=== PATIENT | female | born 1995 | race African-American/Black ===

== ENCOUNTER 2022-03-23 11:25 | Emergency (ER) | payer BC, SELFPAY ==
--- NOTE | ~2022-03-23 | XR_ITS ---
EXAMINATION: XR chest 2V 03/23/2022 11:47 INDICATION: Fever and cough PROCEDURE: 2 view chest COMPARISON: No prior studies for comparison. FINDINGS: The lungs are clear. The cardiomediastinal silhouette is within normal limits. There are no pleural effusions. There is no pneumothorax suspected. IMPRESSION: 1: NO ACUTE CARDIOPULMONARY DISEASE. Reviewed, dictated and finalized at location A.
[2022-03-23 11:28] VITALS: BP 116/67; PULSE 124; RESP 20; TEMP 39.3; O2SAT 99
[2022-03-23] MEDS: ACETAMINOPHEN 500 MG TABLET 1000 MG PO (11:50)
[2022-03-23] MEDS: IBUPROFEN 400 MG TABLET PO (11:50)
[2022-03-23 12:17] LABS: Influenza A QL RT-PCR Positive (Negative); Influenza B QL RT-PCR Negative (Negative); SARS-CoV-2 RNA PCR Negative
--- NOTE | 2022-03-23 12:44 | ED.URI ---
HPI - URI/Sore Throat General Chief Complaint: Upper Respiratory Infection Stated Complaint: fever, cough Time Seen by Provider: 03/23/22 11:33 History of Present Illness HPI Narrative: 26-year-old female history of asthma presents emergency room for evaluation of headache, body aches and fever. Patient states she is been experiencing symptoms since Thursday. Took Tylenol last night with some transient relief of her symptoms. Patient also states that she has been taking her albuterol inhaler more since symptoms began. Related Data Allergies Allergy/AdvReac Type Severity Reaction Status Date / Time No Known Allergies Allergy Verified 03/23/22 11:49 Review of Systems Review of Systems: CONSTITUTIONAL: Reports fever, chills and sweats EYES: Denies visual changes, redness, or discharge. ENT: Denies rhinorrhea, congestion, sore throat, or otalgia. CARDIOVASCULAR: Denies chest pain, palpitations, or edema. RESPIRATORY: Reports cough shortness of breath GASTROINTESTINAL: Denies abdominal pain, nausea, vomiting, or diarrhea. GENITOURINARY: Denies dysuria or hematuria. SKIN: Denies rash or itching. MUSCULOSKELETAL: Denies back pain, joint pain, or myalgia. NEUROLOGIC: Denies headache, numbness, dizziness, or weakness. PSYCHIATRIC: Denies anxiety or depression. Exam Narrative: GENERAL: Well-appearing, well-nourished, no physical limitations, and in no acute distress. HEAD: Normocephalic, atraumatic. EYES: Conjunctivae normal, PERRLA and EOMI. CHEST: Clear to auscultation. No respiratory distress. No wheezes rales or rhonchi. HEART: Tachycardic and regular rhythm. No murmur heard. Normal peripheral pulses. EXTREMITIES: Normal range of motion. No edema. No clubbing or cyanosis SKIN: Warm, dry, no rash. No noted wounds NEURO: No focal deficits. Alert and oriented x3. MAEW. CN's II-XI intact bilaterally, normal gait PSYCH: Cooperative. Anxious. Course Vital Signs Vital signs: Vital Signs Temperature 39.3 C H 03/23/22 11:28 Pulse Rate 124 H 03/23/22 11:28 Respiratory Rate 20 03/23/22 11:28 Blood Pressure 116/67 03/23/22 11:28 Pulse Oximetry 99 03/23/22 11:28 Oxygen Delivery Room Air 03/23/22 11:28 Temperature 39.3 C H 03/23/22 11:28 Pulse Rate 124 H 03/23/22 11:28 Respiratory Rate 20 03/23/22 11:28 Blood Pressure 116/67 03/23/22 11:28 Pulse Oximetry 99 03/23/22 11:28 Oxygen Delivery Room Air 03/23/22 11:28 MDM - URI/Sore Throat Lab Data Labs: Lab Results 03/23/22 Range/Units 11:30 Influenza A (RT-PCR) Positive (Negative) Influenza B (RT-PCR) Negative (Negative) SARS-CoV-2 RNA (RT-PCR) Negative Discharge Plan Discharge Clinical Impression: Influenza Patient Disposition: Home, Self-Care Condition: Stable Instructions: Antibiotic Form, Influenza (ED) Additional Instructions: Continue alternating Tylenol or Profen every 4 hours. Strongly encourage you to push fluids. May take Mucinex DM for your cough. Continue taking your inhaler as needed. Follow-up/Referrals: PHYSICIAN NOT ON STAFF,NONSTAFF [Primary Care Provider] - Time of Disposition: 12:36
[2022-03-23 13:07] VITALS: BP 132/84; PULSE 98; RESP 16; TEMP 38.4; O2SAT 98
== END 2022-03-23 13:08 | disposition home or self-care (01) ==
PROVIDERS: Emergency Medicine; Emergency Provider Nurse Practitioner Family
DX: J10.1 Influenza due to other identified influenza virus with other respiratory manifestations (principal); Z20.822 Contact with and (suspected) exposure to COVID-19
CPT/HCPCS: 71046; 87502; 99283; A9270; U0003; U0005